=== PATIENT | male | born 1945 | race Hispanic/Latino ===

== ENCOUNTER 2016-12-14 14:11 | Emergency (ER) | payer MEDICARE ==
[2016-12-14 14:33] LABS: #Basophils 0.1 thou/uL (0.0-0.2); #Eosinphils 0.1 thou/uL (0.0-0.7); #Lymphocytes 2.5 thou/uL (1.20-3.40); #Monocytes 0.8 thou/uL (0.11-0.59); #Neutrophils 4.5 thou/uL (1.40-6.50); %Basophils 1.1 % (0.0-1.0); %Eosinophils 1.3 % (0.0-10.0); %Monocytes 10.1 % (0.0-10.0); Hematocrit 45.7 % (42.0-52.0); Mean Platelet Volume 6.2 fL (7.4-10.4); Red Blood Cell (RBC) Count 4.77 mill/uL (4.70-6.10)
[2016-12-14] MEDS ORDERED: Acetaminophen 325 MG TAB ONE (14:47)
[2016-12-14 14:49] LABS: Troponin I Less than 0.010 ng/mL (< 0.028)
[2016-12-14 14:50] LABS: PTT 23.2 SEC (22.9-36.1); Prothrombin Time 13.2 SEC (12.0-14.7)
[2016-12-14 14:57] LABS: Lactic Acid - Sepsis 2.4 mmol/L (0.5-2.2)
[2016-12-14 15:26] LABS: ALT (SGPT) 29 U/L (0-55); AST (SGOT) 21 U/L (5-34); Alkaline Phosphatase 72 U/L (40-150); Anion Gap 16 mmol/L (10-20); BUN (Urea Nitrogen) 21 mg/dL (8.4-25.7); Bilirubin, Total 0.4 mg/dL (0.2-1.2); Calc. Creatinine Clearance 0 mL/min (70-130); Calcium 9.4 mg/dL (7.8-10.44); Carbon Dioxide 23 mmol/L (23-31); Chloride 103 mmol/L (98-107); Estimated GFR-MDRD 71; Protein, Total 7.1 g/dL (5.8-8.1)
--- NOTE | 2016-12-14 17:35 | ERRECORD ---
[facility] EMERGENCY RECORD HPI MENTAL STATUS CHANGES (14:24 [facility]) CHIEF COMPLAINT: Patient presents for evaluation of confusion, Patient presents for evaluation of mental status changes. HISTORIAN: History provided by patient, History provided by patient's family, 71M brought to the ED by his son for altered mental status. The patient took Doxasozin for the first time today at approximately 10am. About 2 hours after that he began complaining of feeling poorly, reporting headache and abdominal pain, and then gradually developed altered mental status. On arrival patient was awake but confused, unable to follow commands or stand on his own, and was incontinent of urine. No tremulous movement, no focal neurologic deficits. Spontaneously resolved in the emergency department over a short period of time, and patient denied pain, responded to questions appropriately, and followed commands. LOCATION: Symptoms are generalized. QUALITY: Patient is, responsive to painful stimuli, Outlook coma score, Eye opening: (4) - Spontaneous, Verbal: (4) - Confused/disoriented, Motor: (5) - Localizes Pain. TIME COURSE: Sudden onset of symptoms, Symptoms have resolved. RISK FACTORS: CVA/TIA risk factors, Not applicable, Subarachnoid hemorrhage risk factors, not applicable for this patient. ROS (14:30 [facility]) CONSTITUTIONAL: Historian denies chills, denies fever. poorly responsive. EYES: Negative eye review of systems, Historian denies eye pain, denies eye discharge, denies vision changes. ENT: Negative ears, nose, throat review of systems, Historian denies rhinorrhea, denies sore throat. CARDIOVASCULAR: Negative cardiovascular review of systems, Historian denies chest pain, denies palpitations. RESPIRATORY: Negative respiratory review of systems, Historian denies cough, denies shortness of breath. GI: Negative gastrointestinal review of systems, Historian denies abdominal pain, denies constipation, denies diarrhea, denies nausea, denies vomiting. GENITOURINARY MALE: Negative genitourinary review of systems, Historian denies dysuria, denies hematuria. MUSCULOSKELETAL: Negative musculoskeletal review of systems, Historian denies back pain, denies fall, denies injury, denies neck pain. SKIN: Negative skin review of systems, Historian denies rash, denies skin changes. NEUROLOGIC: Historian reported headache prior to onset of confusion. HEMO/LYMPHATIC: Normal hematologic/lymphatic system review, Historian denies abnormal blood clotting. PAST MEDICAL HISTORY (14:39 [facility]) &a-1R&a+25V*p+0X*m5006Z*c152B*c15G*c2P*p-0X&a-25V&a+1RName: Emile Hunter : M71 MedRec: [id number] AcctNum: [id number] Prepared: WedDec 14, 2016 17:33 by Interface Page 1 of 4 pMD [facility] EMERGENCY RECORD MEDICAL HISTORY: Notes: BPH, HTN, Flu vaccine up to date, Tetanus immunization up to date, Pneumococcal vaccine up to date. MALE SURGICAL HISTORY: Surgical history of appendectomy. PSYCHIATRIC HISTORY: No previous psychiatric history. SOCIAL HISTORY: Patient denies alcohol use, Patient denies drug use, Patient has no smoking history, Lives at home, with family. KNOWN ALLERGIES NO KNOWN ALLERGIES (Unconfirmed) CURRENT MEDICATIONS (15:05 [facility]) doxazosin: TABLET : Strength - 4 mg : ORAL Patient Dose: 4 mg Oral once a day. VITAL SIGNS VITAL SIGNS: BP: 126/76, Pulse: 76, Resp: 18 (Non-Labored), Pain: UTR, O2 sat: 93 on Room Air, Time: 12/14/2016 14:23. (14:23 [facility]) BP: 117/75, Pulse: 80, Resp: 18 (Non-Labored), Temp: 98.2 (Oral), Pain: 0, O2 sat: 96 on Room Air, Time: 12/14/2016 14:36. (14:36 [facility]) BP: 126/74, Pulse: 66, Resp: 16, Temp: 98.0, Pain: 0, O2 sat: 97 on 2L, Time: 12/14/2016 16:20. (16:20 [facility]) PHYSICAL EXAM (14:30 [facility]) CONSTITUTIONAL: Vital Signs Reviewed, Patient afebrile, Pulse normal, Blood pressure normal, Respiratory rate normal, Normal pulse oximetry, Patient appears pain free, Patient, confused, Vital signs reviewed, Patient afebrile, Pulse normal, Blood pressure normal, Respiratory rate normal, Patient appears non toxic, Patient appears pain free, Patient confused but speaking, and did answer some questions appropriately. symptoms resolved rapidly in the ED, able to follow commands and converse in complete sentences. HEAD: Head exam normal, Head exam included findings of head atraumatic, normocephalic. EYES: Eye exam normal, Eye exam included findings of eyelids normal to inspection, Pupils equally round and reactive to light, Extraocular muscles intact, no nystagmus. ENT: ENT exam normal, Ear exam normal, external ear normal, tympanic membranes normal, no bleeding, Pharynx exam normal, Uvula exam normal, Tonsil exam normal, Mouth exam normal, mucous membranes moist, teeth normal. NECK: Neck exam normal, Neck exam included findings of normal range of motion, Trachea midline, no meningeal signs, no cervical adenopathy, no tenderness. RESPIRATORY CHEST: Respiratory and chest exam normal, Respiratory exam included findings of no respiratory distress, Breath sounds clear. CARDIOVASCULAR: Cardiovascular assessment normal, Cardiovascular &a-1R&a+25V*p+0X*q2399O*c152B*c15G*c2P*p-0X&a-25V&a+1RName: Emile Hunter : M71 MedRec: [id number] AcctNum: [id number] Prepared: WedDec 14, 2016 17:33 by Interface Page 2 of 4 D [facility] EMERGENCY RECORD exam included findings of heart rate regular rate and rhythm, Heart sounds normal. ABDOMEN MALE: Abdominal exam included findings of abdomen nontender, Bowel sounds normal, no distension, no mass, no pulsatile masses, no peritoneal signs, no rigidity, no guarding, no rebound, Rovsing's sign absent. BACK: Back exam normal, Back exam included findings of normal inspection, range of motion normal, no tenderness. UPPER EXTREMITY: Upper extremity exam normal, Upper extremity exam included findings of inspection normal, Range of motion normal, Motor strength normal, Sensation intact, Radial pulse normal. LOWER EXTREMITY: Lower extremity exam normal, Lower extremity exam included findings of inspection normal, Range of motion normal, Motor strength normal, Sensation intact, Posterior tibial pulse normal, Pedal pulse normal. NEURO: Neurologic exam findings:, Neuro exam findings include patient oriented to, person, place, Speech normal, Gait abnormal, unable to ambulate, Kimi coma scale, Eye opening: (4) - Spontaneous, Verbal: (4) - Confused/disoriented, Motor: (5) - Localizes Pain, Patient was initially confused but awake, incontinent of urine, unable to ambulate. Symptoms resolved spontaneously over time while in the ED. No focal deficits ever, no reported tremulous movements. SKIN: Skin exam normal, Skin exam included findings of skin warm, dry, and normal in color, no rash. PSYCHIATRIC: Psychiatric exam normal, Normal affect. EKG INTERPRETATION (14:35 [facility]) 12 LEAD EKG INTERPRETATION: 12 lead EKG interpreted by Emergency Department Physician at time of study, Interpretation: normal EKG. RADIOLOGYINTERPRETATION (17:21 [facility]) HEAD: CT brain showed old ischemic changes, no new bleed. MEDICATION ADMINISTRATION SUMMARY Drug Name: Tylenol, Dose Ordered: 650 mg, Route: Oral, Status: Given, Time: 14:50 12/14/2016, Detailed record available in Medication Service section. DOCTOR NOTES (17:21 [facility]) RE-EVALUATION: The patient's condition has improved. TEXT: Patient presented after an episode of altered mental status with incontinence of urine. For a brief period he was unresponsive to his son, with his eyes rolled back in his head. He regained consciousness and gradually returned back to his normal mental status, and at that time had no physical complaints. His workup has been notable only for old ischemic changes seen on CT brain. He and his family report that over the past month, he has had &a-1R&a+25V*p+0X*b7432X*c152B*c15G*c2P*p-0X&a-25V&a+1RName: Emile Hunter : M71 MedRec: [id number] AcctNum: [id number] Prepared: WedDec 14, 2016 17:33 by Interface Page 3 of 4 pMD [facility] EMERGENCY RECORD a thorough medical workup, and on Wednesday was seen by Dr. Martinez following the outpatient testing, and started on Doxasozin. He was told his blood pressure is good and his cholesterol is borderline. Other than the episode today, he has been in good health. Based on the patient's presenting symptoms and resolution, I believe the most likely diagnosis is Seizure vs vasovagal syncopal episode. I considered other neurologic conditions including TIA/CVA, but felt they were less likely based on his presenting complaint and physical exam. I feel seizure is more likely based on the lack of focality, the generalized confusion and urinary incontinence. he had no chest pain, a normal ekg and troponin, and my suspicion for ACS is also low. I believe it was possibly triggered by Doxasozin, and have advised stopping the medication until he confers with Dr. Martinez. I suggest follow up with Neurology, and immediate return to the ED if anything should worsen. PATIENT STATUS: Patient has improved since arrival to emergency department. PATIENT PLAN: The patient will be discharged, The patient will follow up with primary care physician. DATA REVIEWED: Lab data reviewed, Xray data reviewed, Reviewed EKG. PROBLEM LIST No recorded problems DIAGNOSIS (16:07 [facility]) FINAL: PRIMARY: Seizure. PRESCRIPTION No recorded prescriptions DISPOSITION PATIENT: Disposition Type: Discharge, Disposition: *Discharge Home. (16:07 [facility]) Patient left the department. (16:22 [facility]) Smith: ROLAN=MD Malena, Mayo [facility]=ANABELLA [facility] &a-1R&a+25V*p+0X*c4624Y*c152B*c15G*c2P*p-0X&a-25V&a+1RName: Emile Hunter : M71 MedRec: [id number] AcctNum: [id number] Prepared: WedDec 14, 2016 17:33 by Interface Page 4 of 4 pMD MTDD
--- NOTE | 2016-12-14 17:42 | PICIS ---
[facility] EMERGENCY RECORD TRIAGE (WedDec 14, 2016 14:20 KKAR) PATIENT: NAME: Emile Hunter, AGE: 71, GENDER: male, : Sat 1945, TIME OF GREET: WedDec 14, 2016 14:12, PREFERRED LANGUAGE: Nigerian, ETHNICITY: Unable to Determine, ECODE BILLING MAP: [facility], SSN: [id number], Zip Code: [address], PHONE: , , , PERSON ID: [id number], PAYMENT: [employer]. (WedDec 14, 2016 14:20 KKAR) ADMISSION: URGENCY: 1 Critical, ADMISSION SOURCE: Home, TRANSPORT: CAR, BED: TRIAGE. (WedDec 14, 2016 14:20 KKAR) IMMUNIZATIONS: Flu vaccine up to date, Tetanus immunization up to date, Pneumococcal vaccine up to date. (14:39 MZOC) SIRS SCORING: Heart Rate 55-109 (0), Temp range 96.8-101.1 (0), respiratory rate 12-24 (0), Mental Status altered: no (0), Infection or Suspected Infection: No. (14:39 MZOC) TRIAGE SCREENING: Patient denies suicidal ideation, Patient denies presence of domestic violence. (14:39 MZOC) TREATMENTS IN PROGRESS: Treatments given Prehospital: none. (14:39 MZOC) PROVIDERS: TRIAGE NURSE: Maine Doty RN. (WedDec 14, 2016 14:20 KKAR) VITAL SIGNS: BP 117/75, Pulse 80, Resp 18, (Non-Labored), Temp 98.2, (Oral), Pain 0, O2 Sat 96, on Room Air, Time 12/14/2016 14:36. (14:36 MZOC) PREVIOUS VISIT ALLERGIES: NO KNOWN ALLERGIES. (WedDec 14, 2016 14:20 KKAR) NO KNOWN ALLERGIES. (14:39 MZOC) KNOWN ALLERGIES NO KNOWN ALLERGIES (Unconfirmed) CURRENT MEDICATIONS (15:05 MZOC) doxazosin: TABLET : Strength - 4 mg : ORAL Patient Dose: 4 mg Oral once a day. VITAL SIGNS VITAL SIGNS: BP: 126/76, Pulse: 76, Resp: 18 (Non-Labored), Pain: UTR, O2 sat: 93 on Room Air, Time: 12/14/2016 14:23. (14:23 MZOC) BP: 117/75, Pulse: 80, Resp: 18 (Non-Labored), Temp: 98.2 (Oral), Pain: 0, O2 sat: 96 on Room Air, Time: 12/14/2016 14:36. (14:36 MZOC) BP: 126/74, Pulse: 66, Resp: 16, Temp: 98.0, Pain: 0, O2 sat: 97 on 2L, Time: 12/14/2016 16:20. (16:20 MZOC) NURSING ASSESSMENT: CVA ASSESSMENT TOOL (14:20 MZOC) CONSTITUTIONAL: Patient arrives, via hospital wheelchair, Unsteady gait, Inability to ambulate, History obtained from, family member: SON, Patient appears, anxious, confused, restless, uncomfortable, Patient, confused, Patient alert, Oriented to person, place and time, Skin warm, Skin dry, Skin normal &a-1R&a+25V*p+0X*c2455P*c152B*c15G*c2P*p-0X&a-25V&a+1RName: Emile Hunter : M71 MedRec: [id number] AcctNum: [id number] Prepared: WedDec 14, 2016 17:40 by Interface Page 1 of 10 pMD [facility] EMERGENCY RECORD in color, Mucous membranes pink, Mucous membranes moist, Patient is well-groomed, Patient complains of AMS, pt was pulled from personal vehicle VIA this RN and maintenance, [place]. pt was driven via son, son stated pt began having AMS episodes. upon pulling pt from POV pt was unable to focus visually, and was voluntarily vocalizing but not responsive to verbal commands from this RN or his son. Upon pulling pt from POV this RN noticed pt incontinent of urine. When wheeling pt from POV to ER in hospital wheelchair, pt was flaccid and did not have control over head or extremities. Pt was able to provide correct name and today's date when this RN asked upon entrance to the hospital. PAIN: Patient is unable to relate pain to scale, Pain exacerbated by nothing, Nothing has been tried to alleviate the pain. CVA ASSESSMENT: CVA assessment findings include sudden onset of symptoms, Pupils equally round and reactive to light, Speech normal, Hand grasps equal, Foot press equal, Upper extremity motor strength strong, Lower extremity motor strength strong, no facial numbness, no facial droop, no numbness to upper extremities, no numbness to lower extremities, [place] coma scale:, Eye opening: (3) To speech, Verbal: (4) - Confused/disoriented, Motor: (6) - Obeys commands/Spontaneous, GCS Total: 13, no associated nystagmus, no associated visual changes. NIHSS: CVA assessment findings: Level of consciousness: alert, keenly responsive (0), Questions: answers both questions correctly (0), Commands: performs both tasks correctly (0), Best gaze: normal (0), Visual: no visual loss (0), Facial palsy: normal symmetrical movement (0), Motor Left Arm: no drift, arm stays 90/45 degrees for full 10 seconds (0), Motor Right Arm: no drift, arm stays 90/45 degrees for full 10 seconds (0), Motor left leg: no drift, leg stays at 30 degrees for full five seconds (0), Motor right leg: no drift, leg stays at 30 degrees for full five seconds (0), Limb ataxia absent (0), Sensory: normal, no sensory loss (0), Best language: no aphasia; normal (0), Dysarthria: normal (0), Extinction and Inattention: normal (0), Total score 0. SAFETY: Side rails up, Cart/Stretcher in lowest position, Family at bedside, Call light within reach, Hospital ID band on. NURSING PROCEDURE: BEDSIDE TESTING (14:25 AHOO) PATIENT IDENTIFIER: Patient actively involved in identification process, Patient's identity verified by patient stating name, Patient's identity verified by patient stating date, Patient's identity verified by hospital ID сергей, Patient's identity verified by family member. GLUCOSE: Glucose testing indicated for AMS, Capillary blood sample, Result (mg/dl) 125. NURSING PROCEDURE: ORTHOPAEDIC GENERAL PATIENT IDENTIFIER: Patient actively involved in identification process, Patient's identity verified by patient stating name, Patient's identity verified by patient stating date. (14:20 &a-1R&a+25V*p+0X*q5012H*c152B*c15G*c2P*p-0X&a-25V&a+1RName: Emile Hunter : M71 MedRec: [id number] AcctNum: [id number] Prepared: WedDec 14, 2016 17:40 by Interface Page 2 of 10 pMD [facility] EMERGENCY RECORD MZOC) ORTHOPAEDIC GENERAL: Cardiac monitoring indicated for AMS, Patient placed on quality intern, Patient placed on non-invasive blood pressure monitor, with disposable blood pressure cuff applied, Patient placed on continuous pulse oximetry, Adult/pediatric oxisensor applied. (14:20 MZOC) FOLLOW-UP: After procedure, alarms set and on, After procedure, patient tolerating monitoring. (14:41 MZOC) SAFETY: Side rails up, Cart/Stretcher in lowest position, Family at bedside, Call light within reach, Hospital ID band on. (14:20 MZOC) NURSING PROCEDURE: DISCHARGE NOTE (16:20 MZOC) DISCHARGE: Patient discharged to home, ambulating without assistance, family driving, accompanied by other family member, Discharge instructions given to patient, Simple or moderate discharge teaching performed, by Vineet RN, Above person(s) verbalized understanding of discharge instructions and follow-up care, Patient treated and evaluated by physician. BELONGINGS: Belongings and valuables with patient upon arrival to the Emergency Department include:, Belongings and valuables with patient at time of discharge include:, Belongings remain with patient, Valuables remain with patient. SAFETY: Side rails up, Cart/Stretcher in lowest position, Family at bedside, Call light within reach, Hospital ID band on. VITAL SIGNS: BP: 126, / 74, Pulse: 66, Resp: 16, Temp: 98.0, Pain: 0, O2 sat: 97, on: 2L. NURSING PROCEDURE: EKG CHART (14:20 OO) PATIENT IDENTIFIER: Patient actively involved in identification process, Patient's identity verified by patient stating name, Patient's identity verified by patient stating date, Patient's identity verified by hospital ID bracelet, Patient's identity verified by family member. EKG: EKG indicated for AMS, 12 lead EKG performed on the left chest, done by [facility], first EKG, Notes: EKG DONE AT 1417 PT WAS NOT IN THE COMPUTER AT THAT TIME. FOLLOW-UP: After procedure, EKG for interpretation given to Dr. DR HWANG. NURSING PROCEDURE: IV PATIENT IDENITIFIER: Patient actively involved in identification process, Patient's identity verified by patient stating name, Patient's identity verified by patient stating date, Patient's identity verified by hospital ID brataylor, Patient's identity verified by family member. (14:20 MZOC) IV SITE 1: IV therapy indicated for medication administration, IV established, to the left antecubital, using an 18 gauge catheter, in one attempt, IV site prepped with chloraprep, Saline lock established, Flushed with normal saline (mls): 10mL, Labs drawn at time of placement, labeled in the presence of the patient and sent to &a-1R&a+25V*p+0X*r1168F*c152B*c15G*c2P*p-0X&a-25V&a+1RName: Elsa Emile : M71 MedRec: [id number] AcctNum: [id number] Prepared: WedDec 14, 2016 17:40 by Interface Page 3 of 10 D [facility] EMERGENCY RECORD lab. (14:20 MZOC) IV SITE 2: IV therapy indicated for medication administration, IV established, to the right wrist, using an 18 gauge catheter, in one attempt, IV site prepped with chloraprep, Saline lock established, Flushed with normal saline (mls): 10mL, Notes: performed by ANABELLA Tolbert. (14:20 MZOC) FOLLOW-UP SITE 1: After procedure, sterile transparent dressing applied, After procedure, no drainage at IV site, After procedure, no swelling at IV site, After procedure, no redness at IV site. (14:20 MZOC) FOLLOW-UP SITE 2: After procedure, sterile transparent dressing applied, After procedure, no drainage at IV site, After procedure, no swelling at IV site, After procedure, no redness at IV site. (14:20 MZOC) NOTES: Notes: IV d/c due to pt being discharged home. IV removed with catheter intact. Pt tolerated IV d/c procedure well. Dressing applied, no swelling, bleeding or redness to IV site. (16:20 MZOC) SAFETY: Side rails up, Cart/Stretcher in lowest position, Family at bedside, Call light within reach, Hospital ID band on. (14:20 MZOC) NURSING PROCEDURE: NURSE NOTES (15:09 MZOC) NURSES NOTES: Notes: pt resting in bed, HOB at 45 degrees, son at bs. pt A&OX4, RR even and unlabored, pt answers questions appropriately. PT NAD at this time, and states he does not have any pain and is 'feeling much better than he was before'. NURSING PROCEDURE: OXYGEN THERAPY (15:00 MZOC) PATIENT IDENTIFIER: Patient actively involved in identification process, Patient's identity verified by patient stating name, Patient's identity verified by patient stating date. OXYGEN THERAPY: Oxygen therapy indicated for desaturation, Oxygen saturation 84%, by adult/pediatric oxisensor, multiple pulse oximetry reading, 2L oxygen given, via nasal cannula applied, Applied by [facility] RN, via nasal cannula, Notes: pt had good wave form desaturation to mid 80's, this RN instructed pt on deep breathing and 02 stat would rise to 90% and desaturate again. FOLLOW-UP: After procedure, oxygen saturation 95%, After procedure, breath sounds clear. SAFETY: Side rails up, Cart/Stretcher in lowest position, Family at bedside, Call light within reach, Hospital ID band on. NURSING PROCEDURE: TRANSPORT TO TESTS PATIENT IDENTIFIER: Patient actively involved in identification process, Patient's identity verified by patient stating name, Patient's identity verified by patient stating date. (14:28 MZOC) TRANSPORT TO TESTS: Transport indicated to facilitate diagnosis, Patient transported to CT scan, via cart, Accompanied by x-ray &a-1R&a+25V*p+0X*d0710E*c152B*c15G*c2P*p-0X&a-25V&a+1RName: Emile Hunter : M71 MedRec: [id number] AcctNum: [id number] Prepared: WedDec 14, 2016 17:40 by Interface Page 4 of 10 D [facility] EMERGENCY RECORD parking enforcement technician. (14:28 MZOC) FOLLOW-UP: After procedure, patient returned to emergency department. (14:32 MZOC) SAFETY: Side rails up, Cart/Stretcher in lowest position, Family at bedside, Call light within reach, Hospital ID band on. (14:32 MZOC) ORDER DETAILS Order Name: Cardiac Profile w/CKMB & Troponin - I, Status: Active, Time: 14:23 12/14/2016, User: ROLAN, - Ordered for: MD Hwang Jason, - Entered by: MD Hwang Jason - Mon Dec 14, 2016 14:23, - Quantity: 1, Order Name: CBC with Differential, Status: Active, Time: 14:23 12/14/2016, User: ROLAN, - Ordered for: MD Hwang Jason, - Entered by: MD Hwang Jason - Mon Dec 14, 2016 14:23, - Quantity: 1, Order Name: Comprehensive Metabolic Panel, Status: Active, Time: 14:23 12/14/2016, User: ROLAN, - Ordered for: MD Hwang Jason, - Entered by: MD Hwang Jason - Mon Dec 14, 2016 14:23, - Quantity: 1, Order Name: CT Brain WO Con, Status: Active, Time: 14:23 12/14/2016, User: ROLAN, - Ordered for: MD Hwang Jason, - Entered by: MD Hwang Jason - Mon Dec 14, 2016 14:23, - Quantity: 1, Order Name: D-Dimer (Quantitative), Status: Active, Time: 14:23 12/14/2016, User: ROLAN, - Ordered for: MD Hwang Jason, - Entered by: MD Hwang Jason - Mon Dec 14, 2016 14:23, - Quantity: 1, Order Name: EKG 12 Lead in Emergency Room, Status: Active, Time: 14:23 12/14/2016, User: ROLAN, - Ordered for: MD Hwang Jason, - Entered by: MD Hwang Jason - Mon Dec 14, 2016 14:23, - Quantity: 1, Order Name: ERRT Oxygen Usage ER, Status: Active, Time: 15:02 12/14/2016, User: MZOC, - Ordered for: MD Hwang Jason, - Entered by: ANABELLA Dumont, [facility] Dec 14, 2016 15:02, - Quantity: 1, Order Name: Lactic Acid with repeat, Status: Active, Time: 14:23 12/14/2016, User: ROLAN, - Ordered for: MD Hwang Jason, - Entered by: MD Hwang Jason - [facility] Dec 14, 2016 14:23, - Quantity: 1, Order Name: Protime with INR, Status: Active, Time: 14:23 12/14/2016, User: ROLAN, &a-1R&a+25V*p+0X*b1995K*c152B*c15G*c2P*p-0X&a-25V&a+1RName: Emile Hunter : M71 MedRec: [id number] AcctNum: [id number] Prepared: WedDec 14, 2016 17:40 by Interface Page 5 of 10 pMD [facility] EMERGENCY RECORD - Ordered for: MD Hwang Jason, - Entered by: MD Hwang Jason - [facility] Dec 14, 2016 14:23, - Quantity: 1, Order Name: PTT, Status: Active, Time: 14:23 12/14/2016, User: ROLAN, - Ordered for: MD Hwang Jason, - Entered by: MD Hwang Jason - [facility] Dec 14, 2016 14:23, - Quantity: 1, Order Name: SALINE LOCK, Status: Done, Time: 14:35 12/14/2016, User: ARIANNA, - Ordered for: MD Hwang Jason, - Entered by: MD Hwang Jason - [facility] Dec 14, 2016 14:23, - Quantity: 1, Order Name: XR Chest 1 View Portable, Status: Active, Time: 14:23 12/14/2016, User: ROLAN, - Ordered for: MD Hwang Jason, - Entered by: MD Hwang Jason - [facility] Dec 14, 2016 14:23, - Quantity: 1. MEDICATION ADMINISTRATION SUMMARY Drug Name: Tylenol, Dose Ordered: 650 mg, Route: Oral, Status: Given, Time: 14:50 12/14/2016, Detailed record available in Medication Service section. MEDICATION SERVICE (14:50 [facility]) Tylenol: Order: Tylenol (acetaminophen) - Dose: 650 mg : Oral Ordered by: Mayo Hwang MD Entered by: Mayo Hwang MD WedDec 14, 2016 14:47 , Acknowledged by: Ximena Alvarez LVN WedDec 14, 2016 14:48 Documented as given by: Ximena Alvarez LVN WedDec 14, 2016 14:50 Patient, Medication, Dose, Route and Time verified prior to administration. Amount given: 650MG, Correct patient, time, route, dose and medication confirmed prior to administration, Patient advised of actions and side-effects prior to administration, Allergies confirmed and medications reviewed prior to administration, Patient in position of comfort, Side rails up, Cart in lowest position, Family at bedside. HPI MENTAL STATUS CHANGES (14:24 [facility]) CHIEF COMPLAINT: Patient presents for evaluation of confusion, Patient presents for evaluation of mental status changes. HISTORIAN: History provided by patient, History provided by patient's family, 71M brought to the ED by his son for altered mental status. The patient took Doxasozin for the first time today at approximately 10am. About 2 hours after that he began complaining of feeling poorly, reporting headache and abdominal pain, and then gradually developed altered mental status. On arrival patient was awake but confused, unable to follow commands or stand on his own, and was incontinent of urine. No tremulous movement, no &a-1R&a+25V*p+0X*y0073N*c152B*c15G*c2P*p-0X&a-25V&a+1RName: Hunter, Emile : M71 MedRec: [id number] AcctNum: [id number] Prepared: WedDec 14, 2016 17:40 by Interface Page 6 of 10 D [facility] EMERGENCY RECORD focal neurologic deficits. Spontaneously resolved in the emergency department over a short period of time, and patient denied pain, responded to questions appropriately, and followed commands. LOCATION: Symptoms are generalized. QUALITY: Patient is, responsive to painful stimuli, Kimi coma score, Eye opening: (4) - Spontaneous, Verbal: (4) - Confused/disoriented, Motor: (5) - Localizes Pain. TIME COURSE: Sudden onset of symptoms, Symptoms have resolved. RISK FACTORS: CVA/TIA risk factors, Not applicable, Subarachnoid hemorrhage risk factors, not applicable for this patient. ROS (14:30 [facility]) CONSTITUTIONAL: Historian denies chills, denies fever. poorly responsive. EYES: Negative eye review of systems, Historian denies eye pain, denies eye discharge, denies vision changes. ENT: Negative ears, nose, throat review of systems, Historian denies rhinorrhea, denies sore throat. CARDIOVASCULAR: Negative cardiovascular review of systems, Historian denies chest pain, denies palpitations. RESPIRATORY: Negative respiratory review of systems, Historian denies cough, denies shortness of breath. GI: Negative gastrointestinal review of systems, Historian denies abdominal pain, denies constipation, denies diarrhea, denies nausea, denies vomiting. GENITOURINARY MALE: Negative genitourinary review of systems, Historian denies dysuria, denies hematuria. MUSCULOSKELETAL: Negative musculoskeletal review of systems, Historian denies back pain, denies fall, denies injury, denies neck pain. SKIN: Negative skin review of systems, Historian denies rash, denies skin changes. NEUROLOGIC: Historian reported headache prior to onset of confusion. HEMO/LYMPHATIC: Normal hematologic/lymphatic system review, Historian denies abnormal blood clotting. PAST MEDICAL HISTORY (14:39 [facility]) MEDICAL HISTORY: Notes: BPH, HTN, Flu vaccine up to date, Tetanus immunization up to date, Pneumococcal vaccine up to date. MALE SURGICAL HISTORY: Surgical history of appendectomy. PSYCHIATRIC HISTORY: No previous psychiatric history. SOCIAL HISTORY: Patient denies alcohol use, Patient denies drug use, Patient has no smoking history, Lives at home, with family. PHYSICAL EXAM (14:30 [facility]) CONSTITUTIONAL: Vital Signs Reviewed, Patient afebrile, Pulse &a-1R&a+25V*p+0X*l3257W*c152B*c15G*c2P*p-0X&a-25V&a+1RName: Elsa Emile : M71 MedRec: [id number] AcctNum: [id number] Prepared: WedDec 14, 2016 17:40 by Interface Page 7 of 10 pMD [facility] EMERGENCY RECORD normal, Blood pressure normal, Respiratory rate normal, Normal pulse oximetry, Patient appears pain free, Patient, confused, Vital signs reviewed, Patient afebrile, Pulse normal, Blood pressure normal, Respiratory rate normal, Patient appears non toxic, Patient appears pain free, Patient confused but speaking, and did answer some questions appropriately. symptoms resolved rapidly in the ED, able to follow commands and converse in complete sentences. HEAD: Head exam normal, Head exam included findings of head atraumatic, normocephalic. EYES: Eye exam normal, Eye exam included findings of eyelids normal to inspection, Pupils equally round and reactive to light, Extraocular muscles intact, no nystagmus. ENT: ENT exam normal, Ear exam normal, external ear normal, tympanic membranes normal, no bleeding, Pharynx exam normal, Uvula exam normal, Tonsil exam normal, Mouth exam normal, mucous membranes moist, teeth normal. NECK: Neck exam normal, Neck exam included findings of normal range of motion, Trachea midline, no meningeal signs, no cervical adenopathy, no tenderness. RESPIRATORY CHEST: Respiratory and chest exam normal, Respiratory exam included findings of no respiratory distress, Breath sounds clear. CARDIOVASCULAR: Cardiovascular assessment normal, Cardiovascular exam included findings of heart rate regular rate and rhythm, Heart sounds normal. ABDOMEN MALE: Abdominal exam included findings of abdomen nontender, Bowel sounds normal, no distension, no mass, no pulsatile masses, no peritoneal signs, no rigidity, no guarding, no rebound, Rovsing's sign absent. BACK: Back exam normal, Back exam included findings of normal inspection, range of motion normal, no tenderness. UPPER EXTREMITY: Upper extremity exam normal, Upper extremity exam included findings of inspection normal, Range of motion normal, Motor strength normal, Sensation intact, Radial pulse normal. LOWER EXTREMITY: Lower extremity exam normal, Lower extremity exam included findings of inspection normal, Range of motion normal, Motor strength normal, Sensation intact, Posterior tibial pulse normal, Pedal pulse normal. NEURO: Neurologic exam findings:, Neuro exam findings include patient oriented to, person, place, Speech normal, Gait abnormal, unable to ambulate, Kimi coma scale, Eye opening: (4) - Spontaneous, Verbal: (4) - Confused/disoriented, Motor: (5) - Localizes Pain, Patient was initially confused but awake, incontinent of urine, unable to ambulate. Symptoms resolved spontaneously over time while in the ED. No focal deficits ever, no reported tremulous movements. SKIN: Skin exam normal, Skin exam included findings of skin warm, dry, and normal in color, no rash. PSYCHIATRIC: Psychiatric exam normal, Normal affect. &a-1R&a+25V*p+0X*r5776N*c152B*c15G*c2P*p-0X&a-25V&a+1RName: Emile Hunter : M71 MedRec: [id number] AcctNum: [id number] Prepared: WedDec 14, 2016 17:40 by Interface Page 8 of 10 pMD [facility] EMERGENCY RECORD EVENTS TRANSFER: Triage to Emergency Triage. (WedDec 14, 2016 14:20 KKAR) Emergency Triage to Emergency Room -01. (14:33 AHOO) Removed from Emergency Emergency Room -01. (16:22 MZ) RADIOLOGYINTERPRETATION (17:21 JJA) HEAD: CT brain showed old ischemic changes, no new bleed. EKG INTERPRETATION (14:35 JJA) 12 LEAD EKG INTERPRETATION: 12 lead EKG interpreted by Emergency Department Physician at time of study, Interpretation: normal EKG. DOCTOR NOTES (17:21 JJA) RE-EVALUATION: The patient's condition has improved. TEXT: Patient presented after an episode of altered mental status with incontinence of urine. For a brief period he was unresponsive to his son, with his eyes rolled back in his head. He regained consciousness and gradually returned back to his normal mental status, and at that time had no physical complaints. His workup has been notable only for old ischemic changes seen on CT brain. He and his family report that over the past month, he has had a thorough medical workup, and on Wednesday was seen by Dr. Martinez following the outpatient testing, and started on Doxasozin. He was told his blood pressure is good and his cholesterol is borderline. Other than the episode today, he has been in good health. Based on the patient's presenting symptoms and resolution, I believe the most likely diagnosis is Seizure vs vasovagal syncopal episode. I considered other neurologic conditions including TIA/CVA, but felt they were less likely based on his presenting complaint and physical exam. I feel seizure is more likely based on the lack of focality, the generalized confusion and urinary incontinence. he had no chest pain, a normal ekg and troponin, and my suspicion for ACS is also low. I believe it was possibly triggered by Doxasozin, and have advised stopping the medication until he confers with Dr. Martinez. I suggest follow up with Neurology, and immediate return to the ED if anything should worsen. PATIENT STATUS: Patient has improved since arrival to emergency department. PATIENT PLAN: The patient will be discharged, The patient will follow up with primary care physician. DATA REVIEWED: Lab data reviewed, Xray data reviewed, Reviewed EKG. PROBLEM LIST No recorded problems DIAGNOSIS (16:07 [facility]) FINAL: PRIMARY: Seizure. &a-1R&a+25V*p+0X*w3661Y*c152B*c15G*c2P*p-0X&a-25V&a+1RName: Emile Hunter : M71 MedRec: [id number] AcctNum: [id number] Prepared: WedDec 14, 2016 17:40 by Interface Page 9 of 10 pMD [facility] EMERGENCY RECORD DISPOSITION PATIENT: Disposition Type: Discharge, Disposition: *Discharge Home. (16:07 [facility]) Patient left the department. (16:22 [facility]) INSTRUCTION (16:10 [facility]) DISCHARGE: SEIZURE, NEW ONSET, UNK CAUSE [ADULT]. FOLLOWUP: MD Hugo, Amalia, Neurology, [address] [place] [address], [address], [facility] [address], . SPECIAL: Stop the new medication. Follow up with Dr. Martinez, and then neurologist. Return to the ED if you start feeling worse. PRESCRIPTION No recorded prescriptions IMAGING (15:23 [facility]) *EKG: Image captured from scanner. ADMIN (17:27 [facility]) DIGITAL SIGNATURE: MD Hwang Jason. Smith: AHOO=ELICIA Alvarez, February [facility]=MD Hwang Jason KKAR=ANABELLA Doty, [place] [facility]=ANABELLA Dumont, Raymon &a-1R&a+25V*p+0X*[id number]*c152B*c15G*c2P*p-0X&a-25V&a+1RName: Emile Hunter : [id number] MedRec: [id number] AcctNum: [id number] Prepared: Hardeep Dec 14, 2016 17:40 by Interface Page 10 of 10 pMD MTDD
--- NOTE | 2016-12-14 20:06 | CT ---
CT OF THE BRAIN WITHOUT CONTRAST: Date: 12-14-[address] was performed for evaluation of mental status changes. Comparison: None. FINDINGS: A mild degree of atrophy is present with a mild to moderate compensatory dilatation of the ventricle s. There is no ventricular shift. Prominent patchy deep white matter lucency is present, most cons istent with chronic ischemic changes. A small acute stroke would be easily missed against this back ground. There is certainly no intracranial hemorrhage or mass apparent. The calvarium appears inta ct. The visible paranasal sinuses and mastoid air cells are clear. IMPRESSION: Findings most consistent with chronic ischemic change. If there is a strong suspicion of acute stro ke, MRI would potentially be needed to separate the findings from the chronic changes. POS: HOME
--- NOTE | 2016-12-14 20:14 | RAD ---
PORTABLE CHEST: Date: 12-14-16 An AP portable film at 1431 is compared with a 02-16-11 study. FINDINGS: The heart remains normal in size and the lungs are clear. No acute infiltrate or large effusion was seen. The trachea is midline. IMPRESSION: No acute thoracic finding. POS: HOME
== END 2016-12-14 16:10 | disposition home or self-care (01) ==
LOC: BURERS 14:11
DX: R56.9 Unspecified convulsions (principal); I10 Essential (primary) hypertension
CPT/HCPCS: 36415; 70450; 71010; 80053; 82553; 83605; 84484; 85025; 85379; 85610; 85730; 93005

== ENCOUNTER 2016-12-15 11:45 | Outpatient (CLI) | payer MEDICARE | END 2016-12-15 11:46 | disposition home or self-care (01) | LOC: HPCALD 11:45 | PROVIDERS: ATTEND Family Medicine | DX: Z13.6 Encounter for screening for cardiovascular disorders (principal); N40.0 Benign prostatic hyperplasia without lower urinary tract symptoms | CPT/HCPCS: 36415; 80061; G0103 ==

== ENCOUNTER 2016-12-16 11:30 | Outpatient (CLI) | payer MEDICARE | END 2016-12-16 11:31 | disposition home or self-care (01) | LOC: BURLAB 11:30 | PROVIDERS: ATTEND Psychiatry & Neurology Neurology | DX: E53.8 Deficiency of other specified B group vitamins (principal); R53.83 Other fatigue; R55 Syncope and collapse | CPT/HCPCS: 36415; 82607; 82746; 84425; 84443 ==

== ENCOUNTER 2017-01-12 20:46 | Emergency (ER) | payer MEDICARE ==
[2017-01-12 21:34] LABS: #Basophils 0.1 thou/uL (0.0-0.2); #Eosinphils 0.1 thou/uL (0.0-0.7); #Lymphocytes 2.4 thou/uL (1.20-3.40); #Monocytes 0.9 thou/uL (0.11-0.59); #Neutrophils 6.6 thou/uL (1.40-6.50); %Eosinophils 0.8 % (0.0-10.0); %Monocytes 9.1 % (0.0-10.0); Hematocrit 43.5 % (42.0-52.0); Mean Platelet Volume 5.9 fL (7.4-10.4); Red Blood Cell (RBC) Count 4.47 mill/uL (4.70-6.10)
[2017-01-12 21:37] LABS: Bilirubin Negative (Negative); Blood, Urine Small (Negative); Glucose, Urine (Dipstick) Negative (Negative); Ketone, Urine Negative (Negative); Nitrite Negative (Negative); Protein, Urine (Dipstick) Trace mg/dL (Neg-Trace)
[2017-01-12 21:48] LABS: ALT (SGPT) 28 U/L (0-55); AST (SGOT) 23 U/L (5-34); Alkaline Phosphatase 85 U/L (40-150); Anion Gap 13 mmol/L (10-20); BUN (Urea Nitrogen) 21 mg/dL (8.4-25.7); Bilirubin, Total 0.3 mg/dL (0.2-1.2); Calc. Creatinine Clearance 0 mL/min (70-130); Calcium 9.3 mg/dL (7.8-10.44); Carbon Dioxide 24 mmol/L (23-31); Chloride 108 mmol/L (98-107); Estimated GFR-MDRD Greater than 90; Lipase 16 U/L (8-78); Protein, Total 7.1 g/dL (5.8-8.1)
[2017-01-12 21:55] LABS: Squamous Epithelial 0-3 HPF (0-3); WBC/HPF 0-3 HPF (0-3)
== END 2017-01-12 22:10 | disposition home or self-care (01) ==
LOC: BURERS 20:46
DX: K80.50 Calculus of bile duct without cholangitis or cholecystitis without obstruction (principal); I10 Essential (primary) hypertension
CPT/HCPCS: 36415; 80053; 81001; 83690; 85025; 99284

== ENCOUNTER 2017-04-21 13:41 | Outpatient (CLI) | payer MEDICARE ==
--- NOTE | 2017-04-21 15:53 | RAD ---
RIGHT KNEE FOUR VIEWS: 04/21/17 HISTORY: 72-year-old male with right knee pain with fall one year ago. Degenerative and osteoarthrosis changes are noted of the right knee joint with some prominent chondr ocalcinosis. There is evidence of at least one intra-articular body measuring up to approximately 0. 8 cm. No evidence for acute fracture or dislocation. IMPRESSION: Degenerative and arthrosis changes with fairly extensive chondrocalcinosis. Evidence for at least on e intra-articular body. Depending on clinical concern, consideration for a nonemergent followup MRI examination of the knee might be of benefit. POS: [facility]
--- NOTE | 2017-04-21 15:54 | RAD ---
LUMBAR SPINE TWO VIEWS: 04/21/17 HISTORY: 72-year-old male with right sided sciatica and right leg pain following a fall one year ago. Generalized disc osteophytosis and facet arthrosis. No evidence for acute fracture or dislocation. IMPRESSION: Lumbar spondylosis. No acute fracture or dislocation. POS: [facility]
== END 2017-04-21 13:42 | disposition home or self-care (01) ==
LOC: BURRAD 13:41
PROVIDERS: ATTEND Family Medicine
DX: M54.31 Sciatica, right side (principal); M25.561 Pain in right knee; M47.816 Spondylosis without myelopathy or radiculopathy, lumbar region; M17.11 Unilateral primary osteoarthritis, right knee; M11.261 Other chondrocalcinosis, right knee; M23.41 Loose body in knee, right knee
CPT/HCPCS: 72100

== ENCOUNTER 2017-11-18 22:34 | Emergency (ER) | payer MEDICARE ==
[2017-11-18] MEDS ORDERED: Morphine 4 MG/ML Carpuject ONE (23:09)
[2017-11-18 23:27] LABS: #Basophils 0.1 thou/uL (0.0-0.2); #Eosinphils 0.3 thou/uL (0.0-0.7); #Lymphocytes 2.2 thou/uL (1.20-3.40); #Neutrophils 6.5 thou/uL (1.40-6.50); %Basophils 0.9 % (0.0-1.0); %Eosinophils 2.6 % (0.0-10.0); %Lymphocytes 21.9 % (21.0-51.0); %Monocytes 9.7 % (0.0-10.0); %Neutrophils 64.9 % (42.0-75.0); Hemoglobin 14.2 g/dL (14.0-18.0); Mean Corpuscular HGB CONC 34.6 g/dL (32.0-36.0); Mean Corpuscular Hemoglobin 32.7 pg (27.0-31.0); Mean Corpuscular Volume 94.5 fl (80.0-94.0); Mean Platelet Volume 5.9 fL (7.4-10.4); Platelet Count 222 thou/uL (130-400); RBC Distribution Width 10.8 % (11.5-14.5); Red Blood Cell (RBC) Count 4.33 mill/uL (4.70-6.10); White Blood Cell (WBC) Count 9.9 thou/uL (4.8-10.8)
[2017-11-18 23:45] LABS: ALT (SGPT) 34 U/L (8-55); AST (SGOT) 25 U/L (5-34); Alkaline Phosphatase 69 U/L (40-150); Anion Gap 13 mmol/L (10-20); BUN (Urea Nitrogen) 15 mg/dL (8.4-25.7); Bilirubin, Total 0.5 mg/dL (0.2-1.2); Calc. Creatinine Clearance 0 mL/min (70-130); Calcium 9.2 mg/dL (7.8-10.44); Carbon Dioxide 26 mmol/L (23-31); Chloride 104 mmol/L (98-107); Estimated GFR-MDRD Greater than 90; Glucose 109 mg/dL (83-110); Lipase 49 U/L (8-78); Potassium 4.2 mmol/L (3.5-5.1); Sodium 139 mmol/L (136-145)
[2017-11-19 00:28] LABS: Globulin 3.1 g/dL (2.4-3.5); Protein, Total 7.1 g/dL (5.8-8.1)
== END 2017-11-18 23:49 | disposition home or self-care (01) ==
LOC: BURERS 22:34
DX: K80.50 Calculus of bile duct without cholangitis or cholecystitis without obstruction (principal); I10 Essential (primary) hypertension; Z79.899 Other long term (current) drug therapy
CPT/HCPCS: 80053; 83690; 85025; 96374; J2270

== ENCOUNTER → 2019-09-29 | Emergency (ER) | payer MEDICARE ==
[~2019-09-29] MED LIST: Cyclobenzaprine 10 MG TAB ONE; Ibuprofen 800 MG TAB ONE
== END ==
LOC: BURERS 12:24
DX: M62.838 Other muscle spasm (principal); I10 Essential (primary) hypertension; Z79.899 Other long term (current) drug therapy
CPT/HCPCS: 99283

== ENCOUNTER 2020-01-29 13:30 | Emergency (ER) | payer MEDICARE ==
[2020-01-29] MEDS ORDERED: Aspirin Chewable 81 MG TAB ONE ×2 (14:13)
[2020-01-29 14:20] LABS: #Basophils 0.1 thou/uL (0.0-0.2); #Eosinphils 0.1 thou/uL (0.0-0.7); #Lymphocytes 1.6 thou/uL (1.20-3.40); #Monocytes 0.6 thou/uL (0.11-0.59); #Neutrophils 4.5 thou/uL (1.40-6.50); %Basophils 1.1 % (0.0-1.0); %Eosinophils 0.7 % (0.0-10.0); %Monocytes 8.1 % (0.0-10.0); %Neutrophils 66.1 % (42.0-75.0); Hemoglobin 14.3 g/dL (14.0-18.0); Mean Corpuscular HGB CONC 33.9 g/dL (32.0-36.0); Mean Corpuscular Hemoglobin 32.5 pg (27.0-31.0); Mean Corpuscular Volume 95.9 fL (78.0-98.0); Mean Platelet Volume 6.2 fL (7.4-10.4); Platelet Count 221 thou/uL (130-400); RBC Distribution Width 11.4 % (11.5-14.5); White Blood Cell (WBC) Count 6.8 thou/uL (4.8-10.8)
[2020-01-29 14:35] LABS: ALT (SGPT) 24 U/L (8-55); AST (SGOT) 22 U/L (5-34); Albumin 4.2 g/dL (3.4-4.8); Alkaline Phosphatase 69 U/L (40-110); Anion Gap 13 mmol/L (10-20); BUN (Urea Nitrogen) 15 mg/dL (8.4-25.7); Bilirubin, Total 0.5 mg/dL (0.2-1.2); CK (CPK) 95 U/L (30-200); Calc. Creatinine Clearance 0 mL/min (70-130); Calcium 8.9 mg/dL (7.8-10.44); Carbon Dioxide 26 mmol/L (23-31); Chloride 104 mmol/L (98-107); Estimated GFR-MDRD Greater than 90; Globulin 2.7 g/dL (2.4-3.5); Glucose 135 mg/dL (83-110); Potassium 3.8 mmol/L (3.5-5.1); Protein, Total 6.9 g/dL (5.8-8.1); Sodium 139 mmol/L (136-145)
--- NOTE | 2020-01-29 14:39 | RAD ---
XR Chest Pa Lat STANDARD HISTORY: Left-sided chest pain COMPARISON: 12/14/2016 FINDINGS: The heart size is normal. The lungs are well expanded without focal areas of consolidation, pneumothorax or pleural effusions. There are degenerative changes in the spine. IMPRESSION: No radiographic evidence of acute cardiopulmonary process.
== END 2020-01-29 15:00 | disposition home or self-care (01) ==
LOC: BURERS 13:30
DX: R07.89 Other chest pain (principal); I10 Essential (primary) hypertension; Z79.899 Other long term (current) drug therapy
CPT/HCPCS: 71046; 80053; 82550; 84484; 85025; 93005

== ENCOUNTER 2021-05-12 13:11 | Outpatient (CLI) | payer MEDICARE | END 2021-05-12 13:12 | disposition home or self-care (01) | LOC: BURRAD 13:11 | PROVIDERS: ATTEND Nurse Practitioner Family | DX: M54.6 Pain in thoracic spine (principal); M47.814 Spondylosis without myelopathy or radiculopathy, thoracic region | CPT/HCPCS: 72070 ==

== ENCOUNTER 2023-05-26 17:24 | Emergency (ER) | payer OTHER, MEDICARE ==
[2023-05-26] MEDS ORDERED: Lidocaine 2% PF 5 ML VIAL ONE (18:32)
[2023-05-26] MEDS ORDERED: Boostrix 0.5 ML (Tdap) VIAL (>/=7 yrs of age) ONE (18:49)
== END 2023-05-26 18:58 | disposition home or self-care (01) ==
LOC: BURERS 17:24
DX: S01.511A Laceration without foreign body of lip, initial encounter (principal); I10 Essential (primary) hypertension; Z79.899 Other long term (current) drug therapy; Z23 Encounter for immunization; W01.10XA Fall on same level from slipping, tripping and stumbling with subsequent striking against unspecified object, initial encounter
CPT/HCPCS: 12013; 90471; 90715; J2001

== ENCOUNTER 2024-01-19 17:20 | Emergency (ER) | payer MEDICARE | END 2024-01-19 18:18 | disposition home or self-care (01) | LOC: BURERS 17:20 | DX: S61.032A Puncture wound without foreign body of left thumb without damage to nail, initial encounter (principal); I10 Essential (primary) hypertension; W19.XXXA Unspecified fall, initial encounter | CPT/HCPCS: 70450 ==

== ENCOUNTER 2024-05-16 00:14 | Emergency (ER) | payer MEDICARE ==
[2024-05-16] MEDS ORDERED: Acetaminophen 500 MG TAB ONE (00:54)
== END 2024-05-16 01:00 | disposition home or self-care (01) ==
LOC: BURERS 00:14
DX: S01.112A Laceration without foreign body of left eyelid and periocular area, initial encounter (principal); S01.21XA Laceration without foreign body of nose, initial encounter; I10 Essential (primary) hypertension; W20.8XXA Other cause of strike by thrown, projected or falling object, initial encounter
CPT/HCPCS: 12011; 99283